=== PATIENT | female | born 1980 | race Caucasian/White ===

== ENCOUNTER 2017-06-04 11:06 | Outpatient (CLI) | payer MEDICAID ==
[~2017-06-04] VITALS: Ht 147.3 cm; Wt 47.0 kg
[2017-06-04 11:35] VITALS: BP 139/90; PULSE 70; RESP 16
[2017-06-04 17:24] LABS: ADD SCAN DIFF NO
[2017-06-04 17:27] LABS: BASOPHILS % 0.2 % (0.0-2.0); HEMATOCRIT 37.4 % (37.0-47.0); HEMOGLOBIN 13.4 g/dl (12.0-16.0); LYMPHOCYTES % 8.7 % (15.0-51.0); MEAN CORPUSCULAR HEMOGLOBIN 33.7 pg (29.0-33.0); MEAN CORPUSCULAR HGB CONC 35.8 g/dl (32.0-37.0); MEAN PLATELET VOLUME 10.7 fl (7.4-10.4); MONOCYTE # 0.5 10^3/ul (0.3-0.9); MONOCYTES % 4.6 % (0.0-11.0); NEUTROPHIL # 9.9 10^3/ul (1.6-7.5); NEUTROPHILS % 86.1 % (39.0-77.0); PLATELET COUNT 176 10^3/UL (140-415); RED BLOOD COUNT 3.98 10^6/ul (4.20-5.40); RED CELL DISTRIBUTION WIDTH 12.8 % (11.5-14.5); WHITE BLOOD COUNT 11.4 10^3/ul (4.8-10.8)
[2017-06-04 17:37] LABS: ADD UMIC YES; UR ASCORBIC ACID NEGATIVE (NEGATIVE); UR BACTERIA FEW /HPF (NONE SEEN); UR BILIRUBIN (Dip) NEGATIVE (NEGATIVE); UR BLOOD (Dip) 1+ mg/dL (NEGATIVE); UR CLARITY CLEAR (CLEAR); UR COLOR YELLOW (YELLOW); UR GLUCOSE (Dip) NEGATIVE (NEGATIVE); UR KETONES (Dip) NEGATIVE (NEGATIVE); UR LEUKOCYTE ESTERASE (Dip) NEGATIVE Leu/ul (NEGATIVE); UR NITRITE (Dip) NEGATIVE (NEGATIVE); UR RBC 0 /HPF (0-5); UR SPECIFIC GRAVITY (Dip) 1.006 (1.003-1.030); UR TOTAL PROTEIN (Dip) NEGATIVE (NEGATIVE); UR UROBILINOGEN (Dip) NEGATIVE (NEGATIVE)
[2017-06-04 17:45] LABS: INR 0.91; PROTIME 12.3 Sec (12.2-14.2)
[2017-06-04 17:46] LABS: PARTIAL THROMBOPLASTIN TIME 25.6 Sec (25.0-35.0)
[2017-06-04 17:48] LABS: ALBUMIN 4.3 g/dl (3.3-4.9); ALBUMIN/GLOBULIN RATIO 1.38; BILIRUBIN,INDIRECT 0.9 mg/dl (0-1.1); BILIRUBIN,TOTAL 0.9 mg/dl (0.2-1.3); CALCIUM 9.4 mg/dl (8.4-10.2); CREATININE 0.7 mg/dl (0.44-1.00); POTASSIUM 3.8 mmol/L (3.5-5.1); TOTAL PROTEIN 7.4 g/dl (6.1-8.1); URIC ACID 6.8 mg/dl (3.1-7.9)
--- NOTE | 2017-06-04 18:49 | PN ---
Triage Information Date/Time June 04, 2017 Weeks of Gestation 38w 2d : 2 Para: 0 Diabetes: none Hypertention: none Additional information C/O contractions q 15-20 minutes. No bleeding or leaking. No headaches, epigastric pain or visual changes. Objective Vital Signs Date Time Temp Pulse Resp B/P Pulse Ox O2 Delivery O2 Flow Rate FiO2 06/04/17 11:35 97.6 70 16 139/90 98 Room Air Heart Rate: 140's Heart Rate Comments Accels to 160 bpm. No decels. Contractions: 6-10 Minutes Apart Exam 70%/1/-3 and no change in 6 hours. Results/Medications Result Diagram: 06/04/17 1705 06/04/17 1705 Results 24 hrs Laboratory Tests Test 06/04/17 11:00 06/04/17 17:05 Urine Color YELLOW Urine Clarity CLEAR Urine pH 7.0 Urine Specific [place] 1.006 Urine Ketones NEGATIVE Urine Nitrite NEGATIVE Urine Bilirubin NEGATIVE Urine Urobilinogen NEGATIVE Urine Leukocyte Esterase NEGATIVE Urine Microscopic RBC 0 Urine Microscopic WBC 0 Urine Bacteria FEW A Urine Hemoglobin 1+ H Urine Glucose NEGATIVE Urine Total Protein NEGATIVE White Blood Count 11.4 #H Red Blood Count 3.98 L Hemoglobin 13.4 Hematocrit 37.4 Mean Corpuscular Volume 94.0 Mean Corpuscular Hemoglobin 33.7 H Mean Corpuscular Hemoglobin Concent 35.8 Red Cell Distribution Width 12.8 Platelet Count 176 Mean Platelet Volume 10.7 #H Neutrophils % 86.1 H Lymphocytes % 8.7 L Monocytes % 4.6 Eosinophils % 0.0 Basophils % 0.2 Nucleated Red Blood Cells % 0.0 Neutrophils # 9.9 H Lymphocytes # 1.0 Monocytes # 0.5 Eosinophils # 0.0 Basophils # 0.0 Nucleated Red Blood Cells # 0.0 Prothrombin Time 12.3 Prothrombin Time Ratio 1.0 INR International Normalized Ratio 0.91 Activated Partial Thromboplast Time 25.6 Sodium Level 137 Potassium Level 3.8 Chloride Level 103 Carbon Dioxide Level 19 L Anion Gap 19 H Blood Urea Nitrogen 9 Creatinine 0.70 Glucose Level 65 L Uric Acid 6.8 Calcium Level 9.4 Total Bilirubin 0.9 Direct Bilirubin 0.00 Indirect Bilirubin 0.9 Aspartate Amino Transf (AST/SGOT) 26 Alanine Aminotransferase (ALT/SGPT) 29 Alkaline Phosphatase 143 H Total Protein 7.4 Albumin 4.3 Globulin 3.10 Albumin/Globulin Ratio 1.38 Assessment/Plan A: IUP at 38w 2d. Possible mild PIH. Prodromal labor. P: 24 hour urine collection for protein. Pt to return the collection 7/11 AM. Labor precautions reviewed. PIH precautions reviewed. SILVIA NICHOLE MD Jun 04, 2017 18:49
--- NOTE | 2017-06-04 19:31 | TRIAGE ---
OB Triage Datetime Report Generated by CPN: 06/04/2017 19:31 Datetime: 06/04/2017 18:39 Maternal Assessment Level of Consciousness: Fully Conscious Headache: Denies Blurred Vision: No Nausea/Vomiting: Denies RUQ Epigastric Pain: Denies Facial Edema: None Labor Evaluation Frequency: 1-7 Monitor Mode: External Duration (sec)2399: 40-120 Quality: Mild Pattern: Normal: <= 5 Contractions in 10 Minutes Resting Tone [place]: Relaxed Contraction Comments: PT REPORTS ONLY FEELING CONTRACTIONS Q20MIN. Heart Rate FHR Baseline Rate: 140 Monitor Mode: External US FHR Baseline Changes: No Baseline Change Variability: Moderate 6-25 bpm Accelerations: 15X15 Decelerations: Early Pain Assessment Pain Scale: 6 Pain Presence: Intermittent Pain Type: Contraction Pain Location: Abdomen Pain Assessment Comments: PT REPORTS FEELING CONTRACTIONS Q20MIN Datetime: 06/04/2017 18:23 Monitor Mode: External US Datetime: 06/04/2017 18:22 Vaginal Exam Dilatation (cms): 1.0 Exam By: M. ZOKAEE Cervix, Consistency: Firm Presentation 'A': Cephalic Datetime: 06/04/2017 18:01 Maternal Assessment Level of Consciousness: Fully Conscious Headache: Denies Blurred Vision: No Nausea/Vomiting: Denies RUQ Epigastric Pain: Denies Facial Edema: None Labor Evaluation Frequency: 1-6 Monitor Mode: External Duration (sec)2399: 40-120 Quality: Mild Pattern: Normal: <= 5 Contractions in 10 Minutes Resting Tone [place]: Relaxed Heart Rate FHR Baseline Rate: 135 Monitor Mode: External US FHR Baseline Changes: No Baseline Change Variability: Moderate 6-25 bpm Accelerations: 15X15 Decelerations: None Category: Category I Pain Assessment Pain Scale: 4 Pain Presence: Intermittent Pain Type: Contraction Pain Location: Abdomen Datetime: 06/04/2017 17:01 Maternal Assessment Level of Consciousness: Fully Conscious Headache: Denies Blurred Vision: No Nausea/Vomiting: Denies RUQ Epigastric Pain: Denies Facial Edema: None Labor Evaluation Frequency: 2-7 Monitor Mode: External Duration (sec)2399: 60-120 Quality: Mild Pattern: Normal: <= 5 Contractions in 10 Minutes Resting Tone [place]: Relaxed Heart Rate FHR Baseline Rate: 135 Monitor Mode: External US FHR Baseline Changes: No Baseline Change Variability: Moderate 6-25 bpm Accelerations: 15X15 Decelerations: None Pain Assessment Pain Scale: 4 Pain Presence: Intermittent Pain Type: Contraction Pain Location: Abdomen Datetime: 06/04/2017 16:01 Maternal Assessment Level of Consciousness: Fully Conscious Headache: Denies Blurred Vision: No Nausea/Vomiting: Denies RUQ Epigastric Pain: Denies Facial Edema: None Labor Evaluation Frequency: 1-4 Monitor Mode: External Duration (sec)2399: 50-120 Quality: Mild Pattern: Normal: <= 5 Contractions in 10 Minutes Resting Tone [place]: Relaxed Heart Rate FHR Baseline Rate: 135 Monitor Mode: External US FHR Baseline Changes: No Baseline Change Variability: Moderate 6-25 bpm Accelerations: 15X15 Decelerations: None Category: Category I Pain Assessment Pain Scale: 4 Pain Presence: Intermittent Pain Type: Contraction Pain Location: Abdomen Datetime: 06/04/2017 15:17 Pain Assessment Pain Scale: 4 Pain Presence: Intermittent Pain Type: Contraction Pain Location: Abdomen Pain Assessment Comments: PT REPORTS PAIN HAS DECREASED AND IS MAINLY IN HER UPPER ABDOMEN NOW. Datetime: 06/04/2017 15:00 Labor Evaluation Frequency: 1-4 Monitor Mode: External Duration (sec)2399: 50-80 Quality: Mild Pattern: Normal: <= 5 Contractions in 10 Minutes Resting Tone [place]: Relaxed Heart Rate FHR Baseline Rate: 135 Monitor Mode: External US FHR Baseline Changes: No Baseline Change Variability: Moderate 6-25 bpm Accelerations: 15X15 Decelerations: None Datetime: 06/04/2017 14:26 Vaginal Exam Dilatation (cms): 1.0 Effacement (%): 80 Station: -2 Exam By: CKUNIYOSHI Vaginal Bleeding: Normal Show Cervix, Consistency: Moderate Cervix, Position: Posterior Presentation 'A': Unable to Assess Datetime: 06/04/2017 14:23 Monitor Mode: External Contraction Comments: PT BACK ON MONITOR AFTER AMBULATING Monitor Mode: External US Comments: PT BACK ON MONITOR AFTER AMBULATING Datetime: 06/04/2017 12:06 Maternal Assessment Level of Consciousness: Fully Conscious Headache: Denies Blurred Vision: No Nausea/Vomiting: Denies RUQ Epigastric Pain: Denies Facial Edema: None Labor Evaluation Frequency: 1-4 Monitor Mode: External Duration (sec)2399: 60-100 Quality: Mild Pattern: Normal: <= 5 Contractions in 10 Minutes Resting Tone [place]: Relaxed Contraction Comments: OFF MONITOR TO AMBULATE IN UNIT x2 HOURS Heart Rate FHR Baseline Rate: 135 Monitor Mode: External US FHR Baseline Changes: No Baseline Change Variability: Moderate 6-25 bpm Accelerations: 15X15 Decelerations: None Category: Category I Comments: OFF MONITOR TO AMBULATE ON UNIT x2 HOURS Pain Assessment Pain Scale: 5 Pain Presence: Intermittent Pain Type: Contraction Pain Location: Abdomen; Back Datetime: 06/04/2017 11:26 Vaginal Exam Dilatation (cms): 1.0 Effacement (%): 70 Station: -3 Exam By: SAURAV Vaginal Bleeding: Normal Show Cervix, Consistency: Firm Cervix, Position: Posterior Presentation 'A': Unable to Assess Datetime: 06/04/2017 11:19 Stage of : OB Triage Assessment Type: Triage Maternal Assessment Level of Consciousness: Fully Conscious Headache: Denies Blurred Vision: No Respiratory Effort: Unlabored; Regular Rhythm; Equal Expansion Breath Sounds, Left: Clear and Equal Breath Sounds, Right: Clear and Equal Nausea/Vomiting: Denies RUQ Epigastric Pain: Denies Lower Extremities Edema: None Degree: None Upper Extremities Edema: None Degree: None Facial Edema: None Fall Risk Assessment History of Falling: (0) No Secondary Diagnosis: (0) No Ambulatory Aid: (0) Bedrest/Nurse Assist IV Therapy: (0) No Gait: (0) Normal/Bedrest/Immobile Mental Status: (0) Oriented to Own Ability Fall Score: 0 Fall Risk Score Definition: No Risk: No action required Pain Assessment Pain Scale: 5 Pain Presence: Intermittent Pain Type: Contraction Pain Location: Abdomen; Back Datetime: 06/04/2017 11:18 Time of Arrival: 06/04/2017 10:53 EGA: 38.2 Arrived By: Wheelchair Arrived From: Emergency Dept Chief Complaint: CONTRACTIONS FROM 0200 Movement: Present Contractions: Regular Time Contractions Began: 06/04/2017 02:00 Contractions: 15-20 Rupture of Membranes: Denies Vaginal Bleeding: None Vaginal Discharge: Denies Recent Sexual Intercouse: Denies Abdominal Trauma: Not Applicable Patient Complaints: Contractions Time Provider Notified: 06/04/2017 11:53 Provider Notified: DR. NICHOLE Initial Plan: EFM x2, SVE, AMBULATE x2 HOURS, THEN REEXAMINE CERVIX Datetime: 06/04/2017 11:15 Stage of : OB Triage Temperature Route: Oral
== END 2017-06-04 19:00 | disposition home or self-care (01) ==
LOC: OBT 11:06 → L-D 11:06 → OBT 19:00
PROVIDERS: ATTEND Obstetrics & Gynecology
DX: O13.3 Gestational [pregnancy-induced] hypertension without significant proteinuria, third trimester (principal); O09.523 Supervision of elderly multigravida, third trimester; Z3A.38 38 weeks gestation of pregnancy
CPT/HCPCS: 36415; 80053; 81001; 84560; 85025; 85610; 85730; Z7500; G0463

== ENCOUNTER 2017-06-04 20:49 | Inpatient (IN) | payer MEDICAID ==
[~2017-06-04] VITALS: Ht 147.3 cm; Wt 47.0 kg
[2017-06-04] MEDS ORDERED: LIDOCAINE 1% (MPF) 30 ML INJ ONE (20:58)
[2017-06-04] MEDS ORDERED: ONDANSETRON 4 MG INJ ONE (21:20)
[2017-06-04] MEDS ORDERED: CLINDAMYCIN 900 MG/D5W (PMX) 50 ML IVPB STA (21:24)
[2017-06-04] MEDS ORDERED: AMPICILLIN 2 GM/NS (PMX) 0 ML ONE (21:27)
[2017-06-04] MEDS ORDERED: MISOPROSTOL 200 MCG TAB PR PRN (21:30)
[2017-06-04] MEDS ORDERED: OXYTOCIN 30 UNITS/LR 500 ML IV SCH (21:30)
[2017-06-04] MEDS ORDERED: BUTORPHANOL 2 MG INJ IV PRN ×2 (21:30)
[2017-06-04] MEDS ORDERED: IBUPROFEN 600 MG TAB PO PRN (21:30)
[2017-06-04] MEDS ORDERED: METHYLERGONOVINE 0.2 MG INJ IM PRN (21:30)
[2017-06-04] MEDS ORDERED: OXYTOCIN 30 UNITS/LR 500 ML IV PRN (21:30)
[2017-06-04] MEDS ORDERED: LACTATED RINGER'S 1,000 ML IV PRN (21:30)
[2017-06-04] MEDS ORDERED: CARBOPROST 250 MCG INJ IM PRN (21:30)
[2017-06-04] MEDS ORDERED: LIDOCAINE 1% (MPF) 30 ML INJ INJ PRN (21:30)
[2017-06-04] MEDS ORDERED: ACETAMINOPHEN/CODEINE #3 TAB PO PRN (21:30)
--- NOTE | 2017-06-04 21:38 | TRIAGE ---
OB Triage Datetime Report Generated by CPN: 06/04/2017 21:38 Datetime: 06/04/2017 21:32 Dilatation (cms): 9.5 Effacement (%): 100 Station: 0 Exam By: TM Datetime: 06/04/2017 21:09 Assessment Type: Ongoing Assessment Vaginal Bleeding: None Level of Consciousness: Fully Conscious DTR's/Clonus: DTRs 2+; No Clonus Headache: Denies Blurred Vision: No Respiratory Effort: Unlabored; Regular Rhythm; Equal Expansion Breath Sounds, Left: Clear and Equal Breath Sounds, Right: Clear and Equal Nausea/Vomiting: Denies RUQ Epigastric Pain: Denies Lower Extremities Edema: None Degree: None Upper Extremities Edema: None Degree: None Facial Edema: None History of Falling: (0) No Secondary Diagnosis: (0) No Ambulatory Aid: (0) Bedrest/Nurse Assist IV Therapy: (20) Yes Gait: (0) Normal/Bedrest/Immobile Mental Status: (0) Oriented to Own Ability Fall Score: 20 Fall Risk Score Definition: No Risk: No action required Frequency: 2-3 Duration (sec)2399: 50-70 Quality: Strong Pattern: Normal: <= 5 Contractions in 10 Minutes Resting Tone [place]: Relaxed FHR Baseline Rate: 150 Variability: Moderate 6-25 bpm Decelerations: None Pain Scale: 10 Pain Presence: Intermittent Pain Type: Contraction Pain Location: Abdomen Pain Goal: 3 Membrane Status: Ruptured Membranes Ruptured Date/Time: 06/04/2017 20:30 Membranes Rupture Method: Spontaneous Amniotic Fluid Color: Clear Amniotic Fluid Amount: Moderate Datetime: 06/04/2017 21:07 Arrived By: Wheelchair Arrived From: Home Datetime: 06/04/2017 20:58 Stage of : OB Triage Effacement (%): 100 Membrane Status: Intact Datetime: 06/04/2017 20:57 Dilatation (cms): 10.0 Datetime: 06/04/2017 20:54 Dilatation (cms): 10.0 Effacement (%): 100 Station: 1 Exam By: Charley BANKS RN Membrane Status: Ruptured Membranes Rupture Method: Spontaneous Amniotic Fluid Amount: Moderate Amniotic Fluid Odor: None Vaginal Bleeding: None Cervix, Consistency: Soft Cervix, Position: Midposition Presentation 'A': Cephalic Datetime: 06/04/2017 20:53 Assessment Type: Ongoing Assessment Datetime: 06/04/2017 20:50 Time of Arrival: 06/04/2017 20:50 EGA: 38.2 Arrived By: Wheelchair Arrived From: Home Chief Complaint: water broke Movement: Present Contractions: Regular Rupture of Membranes: Ruptured Vaginal Bleeding: None Vaginal Discharge: Denies Recent Sexual Intercouse: Denies Abdominal Trauma: Not Applicable Patient Complaints: Contractions Initial Plan: SVE Datetime: 06/04/2017 11:19 Fall Score: 0 Fall Risk Score Definition: No Risk: No action required Datetime: 06/04/2017 11:18 EGA: 38.2
[2017-06-04] MEDS ORDERED: ONDANSETRON 4 MG INJ IV STA (21:41)
[2017-06-04 21:46] LABS: ADD SCAN DIFF NO
[2017-06-04] MEDS: LACTATED RINGER'S 1,000 ML IV SCH ×2 (21:49→21:56)
[2017-06-04 21:50] LABS: BASOPHILS % 0.3 % (0.0-2.0); HEMOGLOBIN 14.7 g/dl (12.0-16.0); LYMPHOCYTES # 1.3 10^3/ul (0.8-2.9); LYMPHOCYTES % 11.3 % (15.0-51.0); MEAN CORPUSCULAR HEMOGLOBIN 33.5 pg (29.0-33.0); MEAN CORPUSCULAR HGB CONC 35.9 g/dl (32.0-37.0); MEAN CORPUSCULAR VOLUME 93.4 fl (82.0-101.0); MEAN PLATELET VOLUME 11.1 fl (7.4-10.4); MONOCYTE # 0.5 10^3/ul (0.3-0.9); MONOCYTES % 4.8 % (0.0-11.0); NEUTROPHIL # 9.2 10^3/ul (1.6-7.5); NEUTROPHILS % 83.1 % (39.0-77.0); PLATELET COUNT 203 10^3/UL (140-415); RED BLOOD COUNT 4.39 10^6/ul (4.20-5.40); RED CELL DISTRIBUTION WIDTH 12.9 % (11.5-14.5); WHITE BLOOD COUNT 11.1 10^3/ul (4.8-10.8)
[2017-06-04 21:55] LABS: INR 0.82; PROTIME 11.3 Sec (12.2-14.2); PT RATIO 0.9
[2017-06-04 21:56] LABS: PARTIAL THROMBOPLASTIN TIME 25.5 Sec (25.0-35.0)
[2017-06-04] MEDS ORDERED: FENTAnyl 2MCG/ML-ROPIV 0.2% 100 ML ONE (23:14)
[2017-06-04] MEDS ORDERED: FENTAnyl 2MCG/ML-ROPIV 0.2% 100 ML BAG EPI SCH (23:30)
[2017-06-04] MEDS ORDERED: NALOXONE (0.4 MG/ML) INJ IV PRN (23:30)
[2017-06-05] MEDS: LACTATED RINGER'S 1,000 ML IV SCH (01:50)
[2017-06-05] MEDS: OXYTOCIN 30 UNITS/LR 500 ML IV SCH ×2 (02:58→03:10)
--- NOTE | 2017-06-05 03:01 | HP ---
Date/Time of Note Date/Time of Note DATE: 06/05/17 TIME: 02:58 OB - History Hx of Present Chief Complaint: contractions Estimated Due Date: Jun 16, 2017 : 2 Para: 0 Spontaneous : 1 Therapeutic : 0 Care: Good Care Ultrasounds: Normal mid trimester US Obstetrical Complications: None Medical Complications: None Past Family/Social History * Past Medical, Surgical, Family and Obstetric Histories reviewed from chart. GBS Status: Negative OB Admission Exam Physical Exam HEENT: WNL Heart: Rhythm Normal Lungs: Clear, Equal Abdomen: WNL Extremities: Normal Reflexes: Normal Cervical Dilatation: 5cm Heart Rate: 130's Accelerations: Accelerations Present Decelerations: No Decelerations Varibility: Moderate Last 72 hours Lab Results CBC & BMP 06/04/17 21:06 OB Assessment/Plan Reason for admission: active labor Plan: Expectant Management TAMELA MCCOY MD Jun 05, 2017 03:01
--- NOTE | 2017-06-05 03:04 | LDN ---
Date/Time of Note Date/Time of Note DATE: 06/05/17 TIME: 03:01 Delivery Summary Weeks of Gestation 38 weeks and 3 days Placenta Delivered: Spontaneously Meconium: Thick Episiotomy: No Perineal laceration: 1 Laceration repair: First degree laceration repaired with 3-0 Vicryl Anesthesia type: Epidural Estimated blood loss: 200 Sponge & Needle done & correct: Yes All needle counts correct: Yes Any foreign bodies felt in the: No Problems: Delivery Information Sex Sex: female Apgars 1 Minute: 8 5 Minute: 9 Suctioning Nose & mouth suctioned at yudi: Yes Delee suction performed: No Umbilical Cord Umbilical cord with: 3 Vessels Cord presentations: no nuchal cord Cord Blood was obtained: Yes Mother & Baby Disposition Disposition Mom & Baby to Maternity; Good: Yes TAMELA MCCOY MD Jun 05, 2017 03:04
--- NOTE | 2017-06-05 04:11 | DELSUM ---
Delivery Summary A-C Datetime Report Generated by CPN: 06/05/2017 04:10 DELIVERY PERSONNEL Freight Forwarder: Alexander, Linda MATERNAL INFORMATION Delivery Anesthesia: None Medications in Delivery: 30 UNIT PITOCIN Estimated Blood Loss (ml): 200 Placenta Cultured: No Maternal Complications: None LABOR SUMMARY EDC: 06/16/2017 00:00 No. Babies in Womb: 1 Attempted: No Labor Anesthesia: None LABOR INFORMATION Reason for Induction: Not Applicable Onset of Labor: 06/04/2017 03:00 Complete Dilatation: 06/05/2017 02:00 Oxytocin: N/A Group B Beta Strep: Negative Group B Beta Strep: Done, Result Unknown Antibiotics # of Doses: 1 Antibiotics Time of Last Dose: 06/04/2017 21:49 Steroids Given: None Reason Steroids Not Administered: Not Applicable Other Reason Not Administered: BABY TERM MEMBRANES Membranes Rupture Method: Spontaneous Membranes Rupture Method: Spontaneous Rupture of Membranes: 06/04/2017 20:30 Length of Rupture (hr): 6.13 Amniotic Fluid Color: Clear Amniotic Fluid Amount: Moderate Amniotic Fluid Amount: Moderate Amniotic Fluid Odor: None STAGES OF LABOR Stage 1 hr: 23 Stage 1 min: 0 Stage 2 hr: 0 Stage 2 min: 38 Stage 3 hr: 0 Stage 3 min: 5 Total Time in Labor hr: 23 Total Time in Labor min: 43 VAGINAL DELIVERY Episiotomy: None Laceration Extension: First Degree Laceration Type: Perineal Laceration Repair: Yes Initial Vag Sponge Count: 10 Final Vag Sponge Count: 10 Initial Vag Sharps Count: 1 Final Vag Sharps Count: 2 Sponge Count Correct: Yes Sharps Count Correct: Yes Count Comment: 1 SHARP ADDED TO FIELD BABY A INFORMATION Delivery Date/Time: 06/05/2017 02:38 Method of Delivery: Vaginal Method of Delivery: Vaginal Born in Route : No : N/A Forceps: N/A Vacuum Extraction: N/A Shoulder Dystocia : N/A SHOULDER DYSTOCIA BABY A Infant Delivery Date/Time: 06/05/2017 02:38 PRESENTATION/POSITION BABY A Presentation: Cephalic Presentation: Cephalic Presentation: Unable to Assess Presentation: Unable to Assess Cephalic Presentation: Vertex Breech Presentation: N/A PLACENTA INFORMATION BABY A Placenta Delivery Time : 06/05/2017 02:43 Placenta Method of Delivery: Spontaneous Placenta Status: Delivered SCORES BABY A Heart Rate 1 min: >100 bpm Resp Effort 1 min: Good Cry Reflex Irritability 1 min: Cough/Sneeze/Pulls Away Muscle Tone 1 min: Active Motion Color 1 min: Blue/Pale Resuscitation Effort 1 min: Tactile Stimulation SCORE 1 MIN: 8 Heart Rate 5 min: >100 bpm Resp Effort 5 min: Good Cry Reflex Irritability 5 min: Cough/Sneeze/Pulls Away Muscle Tone 5 min: Active Motion Color 5 min: Body [place], Extremit Blue Resuscitation Effort 5 min: Tactile Stimulation SCORE 5 MIN: 9 INFANT INFORMATION BABY A Gestational Age at Delivery: 38.3 Gestational Status: Early Term- 37- 38.6 Weeks Outcome : Liveborn Infant Condition : Stable Infant Sex: Female Sex: Female IDENTIFICATION/MEDS BABY A ID Band Number: [id number] ID Band Location: Right Leg; Left Arm Sensor Applied: Yes Sensor Number: [id number] Sensor Location : Cord Clamp Vitamin K Given : Not Given Erythromycin Given: Not Given WEIGHT/LENGTH BABY A Birthweight (gm): 2560 Infant Weight (lb): 5 Infant Weight (oz): 10 Infant Length (in): 18.00 Infant Length (cm): 45.72 CORD INFORMATION BABY A No. Cord Vessels: 3 Nuchal Cord : N/A Nuchal Cord- Other: X2 AROUND LEFT ARM Cord Blood Taken: Yes Suction: Mouth; Nose ASSESSMENT BABY A Infant Complications: Meconium Complications- Other: TERMINAL MECONIUM Physical Findings at Delivery: Caput Succedaneum Infant Respirations: Appears Normal Sfdc Developer/ALS Called : No Care By: Evelio SAMUEL Transferred To: Remains with Mother
[2017-06-05 04:55] VITALS: BP 114/80; PULSE 75; RESP 15
[2017-06-05 06:00] VITALS: BP 102/66; PULSE 72
[2017-06-05] MEDS ORDERED: CARBOPROST 250 MCG INJ IM PRN (06:30)
[2017-06-05] MEDS ORDERED: BENZOCAINE 20% 56 ML SPRAY TOP PRN (06:30)
[2017-06-05] MEDS ORDERED: ACETAMINOPHEN 325 MG TAB PO PRN (06:30)
[2017-06-05] MEDS ORDERED: WITCH HAZEL/GLYCERIN PAD PR PRN (06:30)
[2017-06-05] MEDS ORDERED: DIBUCAINE 1% 30 GM OINT PR PRN (06:30)
[2017-06-05] MEDS ORDERED: MISOPROSTOL 200 MCG TAB PR PRN (06:30)
[2017-06-05] MEDS ORDERED: METHYLERGONOVINE 0.2 MG INJ IM PRN (06:30)
[2017-06-05] MEDS ORDERED: OXYTOCIN 30 UNITS/LR 500 ML IV PRN (06:30)
[2017-06-05] MEDS ORDERED: ACETAMINOPHEN/CODEINE #3 TAB PO PRN (06:30)
[2017-06-05] MEDS: LACTATED RINGER'S 1,000 ML IV* SCH ×3 (07:16→22:03)
[2017-06-05 08:30] VITALS: BP 104/75; PULSE 73; RESP 16
[2017-06-05] MEDS: SENNA/DOCUSATE NA (8.6MG/50MG) TAB PO SCH ×2 (09:07→20:47)
[2017-06-05 12:02] VITALS: BP 106/67; PULSE 73; RESP 14
[2017-06-05] MEDS: IBUPROFEN 600 MG TAB PO SCH ×3 (12:04→23:27)
[2017-06-05 16:30] VITALS: BP 106/78; PULSE 70; RESP 18
[2017-06-05] MEDS ORDERED: LANOLIN 7 GM TUBE TOP PRN (19:00)
[2017-06-05 19:30] VITALS: BP 101/64; PULSE 74; RESP 19
[2017-06-06 04:00] VITALS: BP 103/61; PULSE 70; RESP 19
[2017-06-06] MEDS: IBUPROFEN 600 MG TAB PO SCH ×4 (05:39→23:47)
[2017-06-06] MEDS: LACTATED RINGER'S 1,000 ML IV* SCH (06:03)
[2017-06-06 08:39] LABS: ADD SCAN DIFF NO
[2017-06-06] MEDS: SENNA/DOCUSATE NA (8.6MG/50MG) TAB PO SCH ×2 (08:41→20:28)
[2017-06-06 08:44] LABS: BASOPHILS % 0.2 % (0.0-2.0); EOSINOPHILS % 0.2 % (0.0-7.0); HEMATOCRIT 33.9 % (37.0-47.0); HEMOGLOBIN 11.5 g/dl (12.0-16.0); LYMPHOCYTES # 1.2 10^3/ul (0.8-2.9); LYMPHOCYTES % 10.2 % (15.0-51.0); MEAN CORPUSCULAR HEMOGLOBIN 32.2 pg (29.0-33.0); MEAN CORPUSCULAR HGB CONC 33.9 g/dl (32.0-37.0); MEAN PLATELET VOLUME 10.5 fl (7.4-10.4); MONOCYTE # 0.7 10^3/ul (0.3-0.9); MONOCYTES % 6.4 % (0.0-11.0); NEUTROPHIL # 9.6 10^3/ul (1.6-7.5); NEUTROPHILS % 82.5 % (39.0-77.0); PLATELET COUNT 150 10^3/UL (140-415); RED BLOOD COUNT 3.57 10^6/ul (4.20-5.40); WHITE BLOOD COUNT 11.7 10^3/ul (4.8-10.8)
[2017-06-06 08:45] VITALS: BP_SYST 104; PULSE 75; RESP 19
--- NOTE | 2017-06-06 13:53 | PN ---
Date/Time of Note Date/Time of Note DATE: 06/06/17 TIME: 13:52 OB Subjective Subjective Subjective day 1 Afebrile vital signs are stable abdomen soft uterus firm lochia normal extremity normal ambulation encouraged Laboratory Tests Test 06/06/17 08:12 White Blood Count 11.710^3/ul Red Blood Count 3.5710^6/ul Hemoglobin 11.5g/dl Hematocrit 33.9% Mean Corpuscular Volume 95.0fl Mean Corpuscular Hemoglobin 32.2pg Mean Corpuscular Hemoglobin Concent 33.9g/dl Red Cell Distribution Width 13.0% Platelet Count 51642^3/UL Mean Platelet Volume 10.5fl Neutrophils % 82.5% Lymphocytes % 10.2% Monocytes % 6.4% Eosinophils % 0.2% Basophils % 0.2% Nucleated Red Blood Cells % 0.0/100WBC Neutrophils # 9.610^3/ul Lymphocytes # 1.210^3/ul Monocytes # 0.710^3/ul Eosinophils # 0.010^3/ul Basophils # 0.010^3/ul Nucleated Red Blood Cells # 0.010^3/ul Current Medications Medications (Trade) Dose Ordered Sig/Britton Route PRN Reason Start Time Stop Time Status Last Admin Dose Admin Lidocaine (Xylocaine 1% (Mpf)) 30 ml STK-MED ONCE .ROUTE 06/04/17 20:58 06/04/17 20:59 DC Ondansetron HCl 4 mg 4 mg STK-MED ONCE .ROUTE 06/04/17 21:20 06/04/17 21:21 DC Ampicillin 0 ml @ ud STK-MED ONCE .ROUTE 06/04/17 21:27 06/04/17 21:28 DC Lactated Ringer's (Lr) 1,000 ml @ 125 mls/hr Q8H IV 06/04/17 21:24 06/05/17 05:45 DC 06/05/17 01:50 Butorphanol Tartrate (Stadol) 1 mg Q2H PRN IV PAIN 06/04/17 21:30 06/05/17 05:45 DC Butorphanol Tartrate (Stadol) 2 mg Q2H PRN IV PAIN 06/04/17 21:30 06/05/17 05:45 DC Lidocaine 30 ml 30 ml ONCE PRN INJ EPISIOTOMY/TEARING 06/04/17 21:30 06/05/17 05:45 DC Oxytocin/Lactated Ringer's 500 ml @ 125 mls/hr ONCE -MAY REPEAT X1 IV 06/04/17 21:30 06/05/17 05:45 DC 06/05/17 03:10 Oxytocin/Lactated Ringer's 500 ml @ 125 mls/hr ONCE IV 06/04/17 21:30 06/05/17 05:45 DC Ibuprofen (Motrin) 600 mg ONCE PRN PO Mild Pain (Pain Score 1-3) 06/04/17 21:30 06/05/17 05:45 DC 06/05/17 03:49 Acetaminophen/ Codeine Phosphate 2 tab 2 tab ONCE PRN PO Moderate to Severe Pain (4-10) 06/04/17 21:30 06/05/17 05:45 DC Lactated Ringer's 1,000 ml @ 2,000 mls/hr Q30M PRN IV PRE-EPIDURAL BOLUS 06/04/17 21:30 06/05/17 05:45 DC Oxytocin/Lactated Ringer's 500 ml @ 0 mls/hr ONCE PRN IV For Hemorrhage Management 06/04/17 21:30 06/05/17 05:45 DC Methylergonovine Maleate (Methergine) 0.2 mg ONCE PRN IM VAGINAL BLEEDING 06/04/17 21:30 06/05/17 05:45 DC Carboprost Tromethamine (Hemabate) 250 mcg ONCE PRN IM VAGINAL BLEEDING 06/04/17 21:30 06/05/17 05:45 DC Misoprostol 1000 mcg 1,000 mcg ONCE PRN IL VAGINAL BLEEDING 06/04/17 21:30 06/05/17 05:45 DC Clindamycin HCl/ Dextrose (Cleocin 900 Mg/ D5W (Pmx)) 50 ml @ 50 mls/hr Q6 STAT IVPB 06/04/17 21:24 06/05/17 05:45 DC 06/04/17 21:49 Ondansetron HCl 4 mg 4 mg ONCE STAT IV 06/04/17 21:41 06/04/17 21:43 DC 06/04/17 21:50 Fentanyl/ Ropivacaine 100 ml @ ud STK-MED ONCE .ROUTE 06/04/17 23:14 06/04/17 23:15 DC Naloxone HCl (Narcan) 0.2 mg Q2M PRN IV FOR RESP RATE 8 OR LESS 06/04/17 23:30 06/05/17 06:09 DC Fentanyl/ Ropivacaine 100 ml 100 ml EPIDURAL (PCEA) EPI 06/04/17 23:30 06/05/17 06:09 DC Lactated Ringer's (Lr) 1,000 ml @ 125 mls/hr Q8H IV* 06/05/17 06:03 06/05/17 07:16 Ibuprofen (Motrin) 600 mg Q6 PO 06/05/17 12:00 06/06/17 12:02 Acetaminophen (Tylenol Tab) 650 mg Q4H PRN PO PAIN LEVEL 1-5 06/05/17 06:30 Acetaminophen/ Codeine Phosphate (Tylenol No.3) 1 tab Q4H PRN PO PAIN LEVEL 1-5 06/05/17 06:30 Senna/Docusate Sodium (Senokot-S) 1 tab BID PO 06/05/17 09:00 06/06/17 08:41 Witch [place]/ Glycerin (Tucks Pads) 1 pad BEDSIDE MEDICATION PRN IL HEMORRHOID/EPISIOTMY PAIN 06/05/17 06:30 06/05/17 06:44 Benzocaine (Dermoplast [place]) 1 spray BEDSIDE MEDICATION PRN TOP HEMORRHOID/EPISIOTMY PAIN 06/05/17 06:30 06/05/17 06:44 Dibucaine (Nupercainal) 1 applic BEDSIDE MEDICATION PRN IL HEMORRHOID/EPISIOTMY PAIN 06/05/17 06:30 Diphtheria/ Tetanus/Acell Pertussis 0.5 ml 0.5 ml ONCE ONCE IM* 06/07/17 09:00 06/07/17 09:01 Oxytocin/Lactated Ringer's 500 ml @ 0 mls/hr ONCE PRN IV For Hemorrhage Management 06/05/17 06:30 Methylergonovine Maleate (Methergine) 0.2 mg ONCE PRN IM VAGINAL BLEEDING 06/05/17 06:30 Carboprost Tromethamine (Hemabate) 250 mcg ONCE PRN IM VAGINAL BLEEDING 06/05/17 06:30 Misoprostol (Cytotec) 1,000 mcg ONCE PRN IL VAGINAL BLEEDING 06/05/17 06:30 Lanolin (Irw-H-Swdlgn) 1 applic BEDSIDE PRN TOP BEDSIDE FOR [place] TO NIPPLES 06/05/17 19:00 06/05/17 18:57 SHALA ODEN MD Jun 06, 2017 13:53
[2017-06-06 16:00] VITALS: BP 108/66; PULSE 75; RESP 18
[2017-06-06 20:15] VITALS: BP 110/80; PULSE 84; RESP 18
[2017-06-07 04:04] VITALS: BP 119/76; PULSE 79; RESP 18
[2017-06-07] MEDS: IBUPROFEN 600 MG TAB PO SCH ×2 (06:02→12:21)
[2017-06-07 08:00] VITALS: BP 122/74; PULSE 85; RESP 18
[2017-06-07] MEDS ORDERED: DIPHTH/TET/ACEL PERTUSS (ADULT) 0.5 ML VIAL IM* ONE (09:00)
[2017-06-07] MEDS: SENNA/DOCUSATE NA (8.6MG/50MG) TAB PO SCH (09:00)
--- NOTE | 2017-06-07 09:50 | PD.PPDC ---
MOSS BLEACHER Discharge Instruction Condition Patient Condition: Good Diet Diet: Resume Regular Diet Activity/Restrictions Activity: Normal Activity May Shower Restrictions: No Exercising No Lifting No Driving No Sexual Activity Nothing in the Vagina No Eek No Tampons, douche Follow-up Follow-up with Physician: 2, Week/Weeks Provider Information: instructions given appointment for check in 2 weeks with the clinic Return to clinic for JUNIOR UNDERWRITER Instructions: Fever greater than 101 Chills Worsening abdominal pain Excessive Vaginal Bleeding More than 2 pads per hour Unable to tolerate diet OB Instructions: Breast Tenderness Depression Blurried Vision Headache SHALA ODEN MD Jun 07, 2017 09:50
--- NOTE | 2017-06-07 09:53 | DS ---
Date/Time of Note Date/Time of Note DATE: 06/07/17 TIME: 09:51 Discharge Summary Admission/Discharge Info Admit Date/Time Jun 04, 2017 at 20:55 Discharge Date/Time June 07, 2017 at 950 Discharge Diagnosis day 2 Patient Condition: Good Procedures Normal vaginal delivery Hx of Present Illness Term in labor Hospital Course Satisfactory uneventful Home Meds No Active Prescriptions or Reported Meds Follow-up Plan instructions given appointment clinic in 2 weeks Primary Care Provider Care Physician No Primary Time spent on discharge: < 30 minutes SHALA ODEN MD Jun 07, 2017 09:52
== END 2017-06-07 13:45 | disposition home or self-care (01) | DRG 775 ==
LOC: OBT 20:49 → L-D 20:50 → OBT 20:55 → PP1 06-05 04:43
PROVIDERS: ADMIT Obstetrics & Gynecology; ATTEND Obstetrics & Gynecology
PROC: 10E0XZZ Delivery of Products of Conception, External Approach (ICD-10-PCS; principal; 2017-06-05)
PROC: 0HQ9XZZ Repair Perineum Skin, External Approach (ICD-10-PCS; 2017-06-05)
DX: O70.0 First degree perineal laceration during delivery (principal); Z37.0 Single live birth; Z3A.38 38 weeks gestation of pregnancy
CPT/HCPCS: 62319; 85025; 85610; 85730; 86592; 86900; 86901; 87340; 90715; 99464; J0290; J2405; J2590; J3010; J7120